=== PATIENT | female | born 1980 | race Caucasian/White ===

== ENCOUNTER 2017-03-18 15:39 | Emergency (ER) | payer BC ==
--- NOTE | 2017-03-18 15:44 | UC ---
Complaint Female HPI - HPI Summary HPI Summary: Patient was seen by NNIA PIERCE - History Of Current Complaint Hx Last Menstrual Period: 10/14/15 <Fede Blackman - Last Filed: 03/18/17 21:12> - HPI Summary HPI Summary: 36 y/o female present to the urgent care c/o pain on urination and burning sensation. Lower back pain 04/17. Pt reports she has Hx of chronic back pain w/ pain management. Pt has not taking anything to alleviate symptoms. Pt denies fever, SOB, chest pain, N/V/D,.Pt has not other complains - History Of Current Complaint Hx Last Menstrual Period: 02/25/2017 ?: No Onset/Duration: Sudden Onset, Still Present Timing: Constant, Lasting Hours Severity Initially: Moderate Severity Currently: Moderate Pain Intensity: 8 Pain Scale Used: 0-10 Numeric Character: Burning Aggravating Factor(s): Urination Alleviating Factor(s): Nothing Associated Signs And Symptoms: Positive: Back Pain. Negative: Vaginal Bleeding/ Discharge, Vaginal Discharge, Nausea, Vomiting(# Of Episodes =), Genital Swelling, Genital Blisters - Risk Factors Ectopic Risk Factor: Negative Ovarian Torsion Risk Factor: Negative <Pooja Montalvo - Last Filed: 03/18/17 23:46> - History Of Current Complaint Stated Complaint: URINARY Time Seen by Provider: 03/18/17 15:43 - Allergies/Home Medications Allergies/Adverse Reactions: Allergies Allergy/AdvReac Type Severity Reaction Status Date / Time Cephalexin Allergy Hives Verified 03/18/17 15:56 Sulfamethoxazole Allergy Hives Verified 03/18/17 15:56 w/Trimethoprim [From Bactrim] Home Medications: Home Medications DULoxetine DR CAP* [Cymbalta CAP*] 60 mg PO ONCE 03/18/17 [History Confirmed 07/25] Furosemide TAB* [Lasix TAB*] 20 mg DAILY 03/18/17 [History Confirmed 03/18/17] Gabapentin CAP(*) [Neurontin 300 CAP(*)] 300 mg PO TID 03/18/17 [History Confirmed 03/18/17] Lisinopril TAB* [Prinivil TAB 5 MG*] 5 mg PO DAILY 03/18/17 [History Confirmed 03/18/17] buPROPion TAB* [Wellbutrin TAB*] 100 mg PO BID 03/18/17 [History Confirmed 03/18] PMH/Surg Hx/FS Hx/Imm Hx - Surgical History Surgical History: Yes Surgery Procedure, Year, and Place: csection - Family History Known Family History: Positive: Cardiac Disease, Hypertension, Diabetes - Social History Alcohol Use: Rare Substance Use Type: None Smoking Status (MU): Former Smoker <Jarvis Blackmanoj - Last Filed: 03/18/17 21:12> Previously Healthy: Yes Endocrine History: Diabetes, Dyslipidemia Neurological History: Other - Chronic lower back pain - Family History Known Family History: Positive: Cardiac Disease, Hypertension, Diabetes - Social History Occupation: Employed Full-time Lives: With Family <Pooja Montalvo - Last Filed: 03/18/17 23:46> Review of Systems All Other Systems Reviewed And Are Negative: Yes <YehudaFede - Last Filed: 03/18/17 21:12> Constitutional: Negative Skin: Negative Eyes: Negative ENT: Negative Respiratory: Negative Cardiovascular: Negative Gastrointestinal: Negative Genitourinary: Dysuria Motor: Negative Neurovascular: Negative Musculoskeletal: Negative, Other: - lower back pain Neurological: Negative Psychological: Negative All Other Systems Reviewed And Are Negative: Yes <Pooja Montalvo - Last Filed: 03/18/17 23:46> Physical Exam Triage Information Reviewed: Yes <YehudaFede - Last Filed: 03/18/17 21:12> Triage Information Reviewed: Yes Appearance: Well-Appearing, No Pain Distress, Well-Nourished, Obese Vital Signs: Initial Vital Signs Temp 100.9 F 03/18/17 15:51 Pulse 119 03/18/17 15:51 Resp 16 03/18/17 15:51 BP 120/76 03/18/17 15:51 Pulse Ox 100 03/18/17 15:51 Vital Signs Reviewed: Yes Eye Exam: Normal Eyes: Positive: Conjunctiva Clear - PERRLA, EOMI, fundi grossly normal ENT Exam: Normal ENT: Positive: Normal ENT inspection, Hearing grossly normal, Pharynx normal, TMs normal Dental Exam: Normal Neck exam: Normal Neck: Positive: Supple, Nontender, No Lymphadenopathy Respiratory Exam: Normal Respiratory: Positive: Chest non-tender, Lungs clear, Normal breath sounds Cardiovascular Exam: Normal Cardiovascular: Positive: RRR, No Murmur Abdominal Exam: Normal Abdomen Description: Positive: Nontender, No Organomegaly, Soft. Negative: CVA Tenderness (R), CVA Tenderness (L) Bowel Sounds: Positive: Present Musculoskeletal Exam: Normal Musculoskeletal: Positive: Strength Intact, ROM Intact, No Edema, Other: - Positive tenderness on deep palpation at the level of L5-S1 w/ tenderness of paraspinal muscle at this level. no swelling observed, no paraspinal muscle spasm observed. Neurological Exam: Normal Psychological Exam: Normal Skin Exam: Normal <Pooja Montalvo - Last Filed: 03/18/17 23:46> Complaint Female Dx - Course Course Of Treatment: 36 y/o female present to the urgent care c/o pain on urination and burning sensation. Lower back pain 04/17. Pt reports she has Hx of chronic back pain w/ pain management. Pt has not taking anything to alleviate symptoms. Pt denies fever, SOB, chest pain, N/V/D,.Pt has not other complains. Hx obtained. PE abnormal findings:Positive tenderness on deep palpation at the level of L5-S1 w/ tenderness of paraspinal muscle at this level. no swelling observed, no paraspinal muscle spasm observed. UA ordered: result:+nitrates H, Leukoesteraces 1+, Blood 2+, protein 2+. test: negative. Pt on oxycodon for chronic lower back pain on pain management. Pt Rx Macrobid 100mg PO BID x 7 days and Pyridium 200mg PO TIDx 2 days to alleviate symptoms. Pt advised to increase fluid intake, rest, and if symptoms persists or worsens to go to the ED immediately. Otherwise to f/u with PCP. Pt understood and agreed. - Differential Dx/Diagnosis Differential Diagnosis/HQI/PQRI: Cervicitis, Ovarian Cyst, Renal Colic, Ureteral Stone, Urinary Tract Infection Provider Diagnoses: Urinary Tract infection <Pooja Montalvo - Last Filed: 03/18/17 23:46> Discharge <Fede Blackman - Last Filed: 03/18/17 21:12> <Pooja Montalvo - Last Filed: 03/18/17 23:46> - Discharge Plan Condition: Stable Disposition: HOME Prescriptions: Nitrofurantoin Monohyd Macro [Macrobid] 100 mg PO BID #14 cap Phenazopyridine TAB* [Pyridium 100 mg TAB*] 100 mg PO TID #6 tab Patient Education Materials: Urinary Tract Infection in Women (ED) Referrals: Jonathan Hernandez MD [Primary Care Provider] - If Needed Additional Instructions: Please take medications as instructed and finish the full course of treatment to avoid recurrent infection. Increase fluid intake and rest. If you do not improve or if symptoms worsen after the course of antibiotics go to the ED immediately,otherwise f/u with your PCP or return to the urgent care.
[2017-03-18 15:56] VITALS: BP 120/76
--- NOTE | 2017-03-18 17:01 | UC ---
Complaint Female HPI - HPI Summary HPI Summary: 36 y/o female present to the urgent care c/o pain on urination and burning sensation. Lower back pain 04/17. Pt reports she has Hx of chronic back pain w/ pain management. Pt has not taking anything to alleviate symptoms. Pt denies fever, SOB, chest pain, N/V/D,.Pt has not other complains - History Of Current Complaint Chief Complaint: UCGU Stated Complaint: URINARY Time Seen by Provider: 03/18/17 15:43 Hx Last Menstrual Period: 02/25/2017 ?: No Onset/Duration: Sudden Onset, Still Present Timing: Constant, Lasting Hours Severity Initially: Moderate Severity Currently: Moderate Pain Intensity: 8 Pain Scale Used: 0-10 Numeric Character: Burning Aggravating Factor(s): Urination Alleviating Factor(s): Nothing Associated Signs And Symptoms: Positive: Back Pain. Negative: Vaginal Bleeding/ Discharge, Vaginal Discharge, Nausea, Vomiting(# Of Episodes =), Genital Swelling, Genital Blisters - Risk Factors Ectopic Risk Factor: Negative Ovarian Torsion Risk Factor: Negative - Allergies/Home Medications Allergies/Adverse Reactions: Allergies Allergy/AdvReac Type Severity Reaction Status Date / Time Cephalexin Allergy Hives Verified 03/18/17 15:56 Sulfamethoxazole Allergy Hives Verified 03/18/17 15:56 w/Trimethoprim [From Bactrim] Home Medications: Home Medications DULoxetine DR CAP* [Cymbalta CAP*] 60 mg PO ONCE 03/18/17 [History Confirmed 07/25] Furosemide TAB* [Lasix TAB*] 20 mg DAILY 03/18/17 [History Confirmed 03/18/17] Gabapentin CAP(*) [Neurontin 300 CAP(*)] 300 mg PO TID 03/18/17 [History Confirmed 03/18/17] Lisinopril TAB* [Prinivil TAB 5 MG*] 5 mg PO DAILY 03/18/17 [History Confirmed 03/18/17] buPROPion TAB* [Wellbutrin TAB*] 100 mg PO BID 03/18/17 [History Confirmed 03/18] PMH/Surg Hx/FS Hx/Imm Hx Previously Healthy: Yes Endocrine History: Diabetes, Dyslipidemia Neurological History: Other - Chronic lower back pain Other Neurological History: Chronic back pain - Surgical History Surgical History: Yes Surgery Procedure, Year, and Place: csection. Tubal - Family History Known Family History: Positive: Cardiac Disease, Hypertension, Diabetes - Social History Occupation: Employed Full-time Lives: With Family Alcohol Use: Rare Substance Use Type: None Smoking Status (MU): Former Smoker Review of Systems Constitutional: Negative Skin: Negative Eyes: Negative ENT: Negative Respiratory: Negative Cardiovascular: Negative Gastrointestinal: Negative Genitourinary: Dysuria Motor: Negative Neurovascular: Negative Musculoskeletal: Negative, Other: - lower back pain Neurological: Negative Psychological: Negative All Other Systems Reviewed And Are Negative: Yes Physical Exam Triage Information Reviewed: Yes Appearance: Well-Appearing, No Pain Distress, Well-Nourished, Obese Vital Signs: Initial Vital Signs Temp 100.9 F 03/18/17 15:51 Pulse 119 03/18/17 15:51 Resp 16 03/18/17 15:51 BP 120/76 03/18/17 15:51 Pulse Ox 100 03/18/17 15:51 Vital Signs Reviewed: Yes Eye Exam: Normal Eyes: Positive: Conjunctiva Clear - PERRLA, EOMI, fundi grossly normal ENT Exam: Normal ENT: Positive: Normal ENT inspection, Hearing grossly normal, Pharynx normal, TMs normal Dental Exam: Normal Neck exam: Normal Neck: Positive: Supple, Nontender, No Lymphadenopathy Respiratory Exam: Normal Respiratory: Positive: Chest non-tender, Lungs clear, Normal breath sounds Cardiovascular Exam: Normal Cardiovascular: Positive: RRR, No Murmur Abdominal Exam: Normal Abdomen Description: Positive: Nontender, No Organomegaly, Soft. Negative: CVA Tenderness (R), CVA Tenderness (L) Bowel Sounds: Positive: Present Musculoskeletal Exam: Normal Musculoskeletal: Positive: Strength Intact, ROM Intact, No Edema, Other: - Positive tenderness on deep palpation at the level of L5-S1 w/ tenderness of paraspinal muscle at this level. no swelling observed, no paraspinal muscle spasm observed. Neurological Exam: Normal Psychological Exam: Normal Skin Exam: Normal Complaint Female Dx - Course Course Of Treatment: 36 y/o female present to the urgent care c/o pain on urination and burning sensation. Lower back pain 04/17. Pt reports she has Hx of chronic back pain w/ pain management. Pt has not taking anything to alleviate symptoms. Pt denies fever, SOB, chest pain, N/V/D,.Pt has not other complains. Hx obtained. PE abnormal findings:Positive tenderness on deep palpation at the level of L5-S1 w/ tenderness of paraspinal muscle at this level. no swelling observed, no paraspinal muscle spasm observed. UA ordered: result:+nitrates H, Leukoesteraces 1+, Blood 2+, protein 2+. test: negative. Pt on oxycodon for chronic lower back pain on pain management. Pt Rx Macrobid 100mg PO BID x 7 days and Pyridium 200mg PO TIDx 2 days to alleviate symptoms. Pt advised to increase fluid intake, rest, and if symptoms persists or worsens to go to the ED immediately. Otherwise to f/u with PCP. Pt understood and agreed. - Differential Dx/Diagnosis Differential Diagnosis/HQI/PQRI: Cervicitis, Ovarian Cyst, Renal Colic, Ureteral Stone, Urinary Tract Infection Provider Diagnoses: Urinary tract infection Discharge - Discharge Plan Condition: Stable Disposition: HOME Prescriptions: Nitrofurantoin Monohyd Macro [Macrobid] 100 mg PO BID #14 cap Phenazopyridine TAB* [Pyridium 100 mg TAB*] 100 mg PO TID #6 tab Patient Education Materials: Urinary Tract Infection in Women (ED) Referrals: Jonathan Hernandez MD [Primary Care Provider] - If Needed Additional Instructions: Please take medications as instructed and finish the full course of treatment to avoid recurrent infection. Increase fluid intake and rest. If you do not improve or if symptoms worsen after the course of antibiotics go to the ED immediately,otherwise f/u with your PCP or return to the urgent care.
== END 2017-03-18 16:37 | disposition home or self-care (01) ==
LOC: UCCORT 15:39
DX: N39.0 Urinary tract infection, site not specified (principal); G89.29 Other chronic pain; M54.9 Dorsalgia, unspecified; E11.9 Type 2 diabetes mellitus without complications; Z87.891 Personal history of nicotine dependence
CPT/HCPCS: 81003; 84702; 87077; 87086; 87186; 99212; G0463

== ENCOUNTER 2017-11-04 10:09 | Emergency (ER) | payer BC ==
--- OUTSIDE RECORDS SUMMARY | 2017-11-04 10:50 | XMS REPORT ---
:1980 External Reference #:[id number] Author Organization [facility] Address [address] [address] Phone [phone] Care Team Providers Name Role Phone Alonzo Stone MD Care Team Information Rescue Instructor Unavailable Jonathan Hernandez MD Primary Care Physician Unavailable Payers Type Date Identification Numbers Payment Provider Subscriber Health Maintenance Policy Number: [facility] Fauzia Rondon [facility] (O) [id number] PayID: [id number] [address] [address] [place] [address] Problems Date Description Provider Status Onset: 08/06/2017 Seizure Shiraz Sheth M.D. Active Onset: 08/06/2017 Aphasia Shiraz Sheth M.D. Active Onset: 08/06/2017 Amnesia Shiraz Sheth M.D. Active Onset: 10/07/2017 Hypersomnia Shiraz Sheth M.D. 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 Family History Date Family Member(s) Problem(s) Comments Father Lung Cancer Father Emphysema Father viky bypass surgery Father [place] Mother Brain Cancer Mother Lung Cancer Mother maternal grandmother-DM,heart issues,[place] Mother maternal grandfather-throat cancer,hemorrhage in brain when he Social History Type Date Description Comments ETOH Use Occasionally consumes alcohol Recreational Drug Use Denies Drug Use Smoking Light tobacco smoker (10 or fewer cigarettes/day) Allergies, Adverse Reactions, Alerts Date Description Reaction Status Severity Comments 08/05/2017 Sulfamethoxazole / Trimethoprim active 08/05/2017 Cephalexin active Medications Medication Date Status Form Strength Qnty SIG Indications Ordering Provider Oxycodone HCL Active Tablets 10mg 60tab 1 by mouth Unknown /0000 s as needed-MDD 3 tabs Phenergan Active Suppository 12.5mg every 4 h Unknown / prn/ no drving after taking Gabapentin Active Capsules 300mg 1 by mouth Unknown /0000 three times a day Lasix Active Tablets 20mg 30tab 1 or 2 Unknown /0000 s tabs by mouth daily Iron Active Tablets 325(65Fe) 1 by mouth Unknown /0000 mg twice daily Omeprazole Active Capsules DR 40mg 1 by mouth Unknown /0000 every day Metformin HCL Active Tablets 1000mg 1 by mouth Unknown /0000 twice a day Glipizide Active Tablets 5mg 1 by mouth Unknown /0000 twice daily Cymbalta Active Caps DR Part 60mg 1 by mouth Unknown /0000 every day Wellbutrin SR Active Tablets ER 100mg 1 by mouth /0000 12HR every morning and night Lisinopril Active Tablets 5mg 1 by mouth Unknown /0000 every day Trulicity Active Solution 1.5mg/0.5 inject /0000 Pen-Inject ML subcutaneo usly weekly Trazodone HCL Active Tablets 50mg 1-3 Unknown / tablet at bedtime as needed Aspirin Adult Active Tablets DR 81mg 1 by mouth Unknown Low Dose /0000 every day Cyclobenzaprine Active Tablets 10mg one or two Unknown HCL / by mouth twice daily Augmentin Hx Tablets 875-125mg one by Unknown /0000 mouth - every 12 08/05 hours ten days Vital Signs Date Vital Result Comment 10/07/2017 Height 63.75 inches 5'3.75" Weight 180.00 lb Heart Rate 86 /min BP Systolic Sitting 116 mmHg BP Diastolic Sitting 80 mmHg Respiratory Rate 15 /min BMI (Body Mass Index) 31.1 kg/m2 08/06/2017 Height 63.75 inches 5'3.75" Weight 190.00 lb Heart Rate 99 /min BP Systolic Sitting 114 mmHg BP Diastolic Sitting 88 mmHg Respiratory Rate 12 /min no respiratory difficulties Pain Level 4 O2 % BldC Oximetry 98 % BMI (Body Mass Index) 32.9 kg/m2 Results Description No Information Procedures Date CPT Code Description Status 09/05/2017 73109 EEG Recording Awake & Drowsy Completed Encounters Type Date Location Provider CPT E/M Dx Office Visit 10/07/2017 [facility] Shiraz Sheth, [address] R47.01 8:00a [facility] R41.3 G47.10 G47.26 Office Visit 08/06/2017 9:30a [place] Shiraz Sheth [address] R47.01 [facility] R41.3 Plan of Care Future Appointment(s):11/07/2017 8:15 am - Shiraz Sheth M.D. at [facility]10/07/2017 - Shiraz Sheth M.D.R47.01 AphasiaFollow up:Follow up after sleep study, 4 [id number] Other [id number] Hypersomnia, unspecifiedNew Orders:Sleep IcojtR74.26 Circadian rhythm sleep disorder, shift work type
[2017-11-04 10:52] VITALS: BP 131/87
--- NOTE | 2017-11-04 11:08 | UC ---
Dental HPI - HPI Summary HPI Summary: PT WITH ONSET OF LEFT LOWER DENTAL PAIN 3 DAYS AGO. PAIN AND SWELLING WORSENED OVER THE DAY SO SHE WENT TO [facility] ED. WAS TREATED WITH PO PCN. PAIN AND SWELLING CONTINUED TO WORSEN SO YESTERDAY WENT TO PCP AND HAD ABX CHANGED TO CLINDAMYCIN. TODAY WENT TO [facility] AND WAS SENT HERE FOR IV ANTIBIOTICS. PT WITH SEVERE PAIN AND SWELLING LEFT LOWER JAW. UNABLE TO OPEN MOUTH. HAS NOT BEEN ABLE TO EAT. TEMP ELEVATED AROUND 99. HAS VERY POOR DENTITION. - History of Current Complaint Chief Complaint: UCDentalProblem Stated Complaint: TOOTH ACHE Time Seen by Provider: 11/04/17 10:56 Hx Obtained From: Patient, Family/Accordion Repairer - FRIEND Hx Last Menstrual Period: 10/28/17 Onset/Duration: Gradual Onset, Lasting Days, Still Present Severity: Severe Pain Intensity: 10 Pain Scale Used: 0-10 Numeric Aggravating Factor(s): Heat, Cold, Chewing Alleviating Factor(s): Nothing - Allergies/Home Medications Allergies/Adverse Reactions: Allergies Allergy/AdvReac Type Severity Reaction Status Date / Time cephalexin Allergy Hives Verified 11/04/17 10:45 sulfamethoxazole Allergy Unknown Verified 11/04/17 10:45 [From Bactrim] Reaction Details trimethoprim [From Bactrim] Allergy Unknown Verified 11/04/17 10:45 Reaction Details Home Medications: Home Medications Aspirin [Aspirin Childrens 81 MG] 81 mg PO DAILY 11/04/17 [History Confirmed ] Aspirin/Acetaminophen/Caffeine [Excedrin Migraine Caplet] 2 each PO DAILY PRN [History Confirmed 11/04/17] Clindamycin HCl 300 mg PO Q4HR 11/04/17 [History Confirmed 11/04/17] Cyclobenzaprine HCl 10 mg PO BID 11/04/17 [History Confirmed 11/04/17] Dulaglutide [Trulicity] 1.5 mg SQ WEEKLY 11/04/17 [History Confirmed 11/04/17] Ibuprofen TAB* [Motrin TAB* 800 MG] 800 mg PO Q6H 11/04/17 [History Confirmed ] Trazodone HCl 50 mg PO TID 11/04/17 [History Confirmed 11/04/17] busPIRone TAB* [Buspar TAB*] 10 mg PO BID 11/04/17 [History Confirmed 11/04/17] PMH/Surg Hx/FS Hx/Imm Hx Endocrine History: Diabetes Cardiovascular History: Hypertension Psychological History: Anxiety, Depression - Surgical History Surgical History: Yes Surgery Procedure, Year, and Place: csection - Family History Known Family History: Positive: Cardiac Disease, Hypertension, Diabetes - Social History Alcohol Use: Rare Substance Use Type: None Smoking Status (MU): Heavy Every Day Tobacco Smoker Amount Used/How Often: 1 pack q couple of days Review of Systems Constitutional: Negative Skin: Negative ENT: Dental Pain Respiratory: Negative Cardiovascular: Negative Gastrointestinal: Negative All Other Systems Reviewed And Are Negative: Yes Physical Exam Triage Information Reviewed: Yes Appearance: Well-Nourished, Pain Distress - SEVERE Vital Signs: Initial Vital Signs Temp 99.0 F 11/04/17 10:46 Pulse 115 11/04/17 10:46 Resp 18 11/04/17 10:46 BP 131/87 11/04/17 10:46 Pulse Ox 100 11/04/17 10:46 Vital Signs Reviewed: Yes Eyes: Positive: Conjunctiva Clear ENT: Positive: Hearing grossly normal, TMs normal, Trismus, Other - EXQUISITELY TENDER AND SWOLLEN LEFT LOWER JAW LINE Dental: Positive: Gross Decay/Caries @ - EDENTULOUS UPPER. LOWER TEETH WITH SEVERE DECAY. Neck: Positive: Supple Respiratory: Positive: No respiratory distress, No accessory muscle use Cardiovascular: Positive: Tachycardia Abdomen Description: Positive: Soft Neurological: Positive: Alert Psychological: Positive: Age Appropriate Behavior Skin: Negative: rashes Dental Complaint Course/Dx - Differential Dx/Diagnosis Provider Diagnoses: LEFT LOWER DENTAL ABSCESS - Physician Notification/Consults Discussed Patient Care With: Marycruz Danielson - TO ED BY PRIVATE CAR Time Discussed With Above Provider: 11:15 Instructed by Provider To: MD Will See In ED Discharge - Discharge Plan Condition: Stable Disposition: HOME Patient Education Materials: Dental Abscess (ED) Referrals: Jonathan Hernandez MD [Primary Care Provider] - If Needed Additional Instructions: GO DIRECTLY TO [facility] FROM HERE. YOU NEED TO BE EVALUATED FOR POSSIBLE LAB WORK AND IV ANTIBIOTICS AND POSSIBLE IMAGING. 600MG IBUPROFEN GIVEN AT 11:15AM.
[2017-11-04] MEDS ORDERED: Ibuprofen TAB* 600 MG PO ONE (11:09)
[2017-11-04] MEDS ORDERED: Ibuprofen TAB* 600 MG ONE (11:10)
== END 2017-11-04 11:15 | disposition home or self-care (01) ==
LOC: UCEAST 10:09
DX: K04.7 Periapical abscess without sinus (principal); E11.9 Type 2 diabetes mellitus without complications; I10 Essential (primary) hypertension; F41.9 Anxiety disorder, unspecified; F32.9 Major depressive disorder, single episode, unspecified; Z88.1 Allergy status to other antibiotic agents; Z88.2 Allergy status to sulfonamides; F17.210 Nicotine dependence, cigarettes, uncomplicated
CPT/HCPCS: 99212; A9270-GY; G0463

== ENCOUNTER 2022-07-15 22:29 | Observation (INO) ==
[2022-07-16 02:25] LABS: Hematocrit 30 % (35-47); White Blood Count 6.5 10^3/uL (3.5-10.8)
[2022-07-16 02:39] LABS: Albumin 3.7 g/dL (3.2-5.2); Albumin/Globulin Ratio 1.4 (1-3); C Reactive Protein 6.47 mg/L (<8.01); Calcium 8.5 mg/dL (8.6-10.3); Globulin 2.7 g/dL (2-4); Potassium 4.1 mmol/L (3.5-5.0); Total Protein 6.4 g/dL (6.4-8.9); eGFR CKD-EPI 77.7 (>60)
[2022-07-16 02:41] LABS: ABS Eosinophils 0.1 10^3/ul (0-0.6); ABS Lymphocytes 1.9 10^3/ul (1.0-4.8); ABS Monocytes 0.5 10^3/ul (0-0.8); Eosinophil % 1.8 %; Lymphocyte % 28.7 %; Mean Corpuscular HGB Conc 30 g/dL (31-36); Mean Corpuscular Hemoglobin 20 pg (27-31); Mean Corpuscular Volume 66 fL (80-97); Mean Platelet Volume 8.4 fL (7.4-10.4); Platelet Count 355 10^3/uL (150-450); Red Cell Distribution Width 18 % (10-15)
[2022-07-16 02:42] LABS: Anisocytosis 1+; Microcytosis 3+
[2022-07-16 03:01] LABS: Hypochromasia 1+; Polychromasia 1+
[2022-07-16] MEDS ORDERED: Iohexol 350 (CONTRAST) 500 ML MDV IV ONE ×2 (03:07→03:49)
[2022-07-16 03:54] LABS: High Sensitivity Troponin 1 Hr 15 pg/mL (<15)
[2022-07-16] MEDS ORDERED: Furosemide 40 mg/4 ml IV VIAL IV ONE (06:20)
[2022-07-16 09:29] LABS: Activated Partial Thrombo Time 28.2 seconds (26.0-38.0); INR 1.16 (0.89-1.11)
[2022-07-16 09:30] LABS: Ferritin 5.5 ng/mL (11-307)
[2022-07-16 10:21] LABS: Hematocrit for Retic CNT 31 % (35-47); Immature Retic Fraction 0.39; RBC Retic Count 4.67 10^6/uL (3.70-4.87)
[2022-07-16 10:50] LABS: HDL Cholesterol 35.7 mg/dL
[2022-07-16] MEDS ORDERED: Iron Sucrose 200 MG in NS 0.9% 100 ml BAG 100 ML IVPB SCH (12:00)
[2022-07-16 12:01] LABS: TSH Ultra Thyroid Stim Horm 5.21 mcIU/mL (0.34-5.60)
[2022-07-16 12:04] LABS: Free T3 4.2 pg/mL (2.5-3.9)
[2022-07-16 12:10] LABS: Free T4 1.06 ng/dL (0.61-1.12)
[2022-07-16 13:18] LABS: Calcium 8.8 mg/dL (8.6-10.3); Magnesium 1.8 mg/dL (1.9-2.7); Potassium 4.2 mmol/L (3.5-5.0); eGFR CKD-EPI 78.7 (>60)
[2022-07-16 13:24] LABS: HCG Pregnancy 0.76 mIU/mL
[2022-07-16] MEDS ORDERED: Magnesium Sulfate 2 gm BAG 2 GM/50 ML BAG IVPB ONE (13:35)
[2022-07-16] MEDS: Bumetanide IV 0.25 MG/ML 4 ml VIAL (1 mg) SLOW PUSH SCH ×2 (14:56→20:42)
[2022-07-16 15:56] LABS: Body Fluid WBC 477 /mcL
[2022-07-16 17:21] LABS: Body Fluid Appearance Cloudy; Body Fluid Mono 33 %; Body Fluid Source Pleural Fluid; Body Fluid Total Cells Counted 200
[2022-07-16 17:22] LABS: Body Fluid Color Yellow
[2022-07-16] MEDS ORDERED: guaiFENesin DM SUGAR FREE 100 MG/10 MG 5 ML UDC PO PRN (17:36)
[2022-07-16] MEDS: Enoxaparin 40 MG/0.4 ML SYR SUBCUT SCH (20:42)
[2022-07-17 06:21] LABS: ABS Eosinophils 0.1 10^3/ul (0-0.6); ABS Monocytes 0.4 10^3/ul (0-0.8); ABS Neutrophils 3.9 10^3/ul (1.5-7.7); Eosinophil % 2.4 %; Hematocrit 27 % (35-47); Hemoglobin 8.1 g/dL (12.0-16.0); Lymphocyte % 18.5 %; Mean Corpuscular HGB Conc 30 g/dL (31-36); Mean Corpuscular Hemoglobin 19 pg (27-31); Mean Corpuscular Volume 65 fL (80-97); Mean Platelet Volume 8.4 fL (7.4-10.4); Platelet Count 313 10^3/uL (150-450); Red Cell Distribution Width 18 % (10-15); White Blood Count 5.5 10^3/uL (3.5-10.8)
[2022-07-17 06:35] LABS: Calcium 8.2 mg/dL (8.6-10.3); Magnesium 1.9 mg/dL (1.9-2.7); Potassium 3.8 mmol/L (3.5-5.0); eGFR CKD-EPI 78.7 (>60)
[2022-07-17] MEDS: Bumetanide IV 0.25 MG/ML 4 ml VIAL (1 mg) SLOW PUSH SCH ×2 (09:06→21:53)
[2022-07-17] MEDS: Iron Sucrose 200 MG in NS 0.9% 100 ml BAG 100 ML IVPB SCH (11:38)
[2022-07-17] MEDS: Enoxaparin 40 MG/0.4 ML SYR SUBCUT SCH (21:51)
[2022-07-18 07:07] LABS: ABS Eosinophils 0.1 10^3/ul (0-0.6); ABS Lymphocytes 1.7 10^3/ul (1.0-4.8); ABS Monocytes 0.4 10^3/ul (0-0.8); Eosinophil % 2.6 %; Hematocrit 27 % (35-47); Hemoglobin 8.1 g/dL (12.0-16.0); Lymphocyte % 31.6 %; Mean Corpuscular HGB Conc 30 g/dL (31-36); Mean Corpuscular Hemoglobin 20 pg (27-31); Mean Corpuscular Volume 66 fL (80-97); Mean Platelet Volume 8.4 fL (7.4-10.4); Nucleated Red Blood Cells % 0.1; Platelet Count 291 10^3/uL (150-450); Red Cell Distribution Width 18 % (10-15); White Blood Count 5.3 10^3/uL (3.5-10.8)
[2022-07-18 08:28] VITALS: BP 93/59
[2022-07-18 09:14] LABS: Calcium 8.3 mg/dL (8.6-10.3); Magnesium 1.8 mg/dL (1.9-2.7); eGFR CKD-EPI 81.9 (>60)
[2022-07-18] MEDS: Iron Sucrose 200 MG in NS 0.9% 100 ml BAG 100 ML IVPB SCH (12:47)
[2022-07-18 13:49] LABS: Lactate Dehydrogenase, BF 60 U/L
[2022-07-18 16:04] LABS: Fluid Type: PLEURAL FLUID
[2022-07-18 16:27] LABS: Fluid Type, Protein, Total PLEURAL FLUID; Total Protein, BF 1.6 g/dL
[2022-07-22 12:28] LABS: Albumin 2.6 g/dL (3.4-4.7); Albumin/Globulin Ratio 0.84; Gamma Globulin 0.9 g/dL (0.6-1.6); Total Protein(PEP) 5.6 g/dL (6.3 - 7.9)
== END 2022-07-18 15:57 | disposition home or self-care (01) ==
LOC: ED 22:29 → EDHOLD 22:29 → SUATTDRO 07-16 07:48 → MEDTELE 07-16 11:59
PROVIDERS: ADMIT Internal Medicine; ATTEND Internal Medicine